=== PATIENT | female | born 1995 | race Caucasian/White ===

== ENCOUNTER 2016-11-17 18:07 | Emergency (ER) | payer SELFPAY ==
[2016-11-17 18:32] VITALS: BP 104/59
[2016-11-17] MEDS ORDERED: XYLOCAINE 1% 20 mL INFILTRATI ONE (22:19)
[2016-11-17] MEDS ORDERED: NORCO 10/325 PO ONE (22:19)
--- NOTE | 2016-11-17 22:19 | Emergency Department Report ---
HPI - General Chief Complaint: Skin/Abscess/Foreign Body Time Seen by Provider: 11/17/16 22:14 - HPI HPI: Patient is a 21-year-old female who presents to ED complaining of left buttock pain and boil times a week. Patient states she noticed a ball on her left buttock and has gotten bigger and has gotten progressively worse as far as pain level. Patient states she is in a lot of pain and is unable to sit on her butt. She denies fevers/chills/nausea/vomiting/abdominal pain/chest pain/dizziness/ diarrhea/shortness of breath or any other problems. ED Past Medical Hx - Past Medical History Previous Medical History?: Yes Additional medical history: chest pain - Surgical History Past Surgical History?: No - Social History Smoking Status: Current Every Day Smoker Substance Use Type: Alcohol, Marijuana, Non Opiate Pain - Medications Home Medications: Home Medications Medication Instructions Recorded Confirmed Last Taken Type Acetaminophen/Codeine [Tylenol #3] 1 tab PO Q6H PRN #12 tab 11/17/16 Unknown Rx Cephalexin [Keflex] 500 mg PO BID #14 capsule 11/17/16 Unknown Rx Ibuprofen [Motrin] 800 mg PO Q8HR PRN #30 tablet 11/17/16 Unknown Rx ED Review of Systems ROS: Stated complaint: CHEST PAIN /BOIL ON BUTTOCKS Other details as noted in HPI Constitutional: denies: chills, fever Eyes: denies: eye pain, eye discharge, vision change ENT: denies: ear pain, throat pain Respiratory: denies: cough, shortness of breath, wheezing Cardiovascular: denies: chest pain, palpitations Endocrine: no symptoms reported Gastrointestinal: denies: abdominal pain, nausea, diarrhea Genitourinary: denies: urgency, dysuria, discharge Musculoskeletal: denies: back pain, joint swelling, arthralgia Skin: other (boil on buttocks). denies: rash, lesions, pruritus Neurological: denies: headache, weakness, paresthesias Psychiatric: denies: anxiety, depression Hematological/Lymphatic: denies: easy bleeding, easy bruising Physical Exam - Physical Exam Vital Signs: Vital Signs 11/17/16 18:27 Temperature 97.4 F L Pulse Rate 66 Respiratory 20 Rate Blood Pressure 104/59 O2 Sat by Pulse 100 Oximetry Physical Exam: GENERAL: Alert and oriented x3, no apparent distress, Normal Gait, atraumatic. HEAD: Head is normocephalic and a-traumatic. EYES: Extra ocular muscles are intact. Pupils are equal, round, and reactive to light and accommodation. EARS: symetrical, atraumatic, non tender. gross auditory nml bilaterally. NOSE: Nose symetrical, Nontender,Nares appeared normal. MOUTH:Mouth is well hydrated and without lesions. Patent airways. NECK: Supple. Non edematous, No carotid bruits. No lymphadenopathy or thyromegaly. LUNGS: Symetrical with respiration, No wheezing, no rales or crackles, CTAB. HEART: S1, S2 present, regular rate and rhythm without murmur, no rubs, no gallops. ABDOMEN: No organomegaly was noted,Positive bowel sounds, soft, and non- distended. . Nontender to palpation on all Quadrants, NO CVA tenderness. BUTTOCK: Abscess on medial aspect of the left buttocks., Fluctuant, 10-12 cm in size. tenderness to palpation. EXTREMITIES/MUSCULOSKELETAL: No cyanosis, clubbing, rash, lesions or edema. Full ROM bilaterally. UE/LE Pulses 2+ bilaterally. NEUROLOGIC: No focal Deficit, Cranial nerves II through XII are grossly intact. No loss of sensation, PSYCHIATRIC: Mood is congruent with affect, denies suicidal or homicidal ideations. SKIN: Warm and dry, No lesions, No ulceration or induration present. ED Course Vital Signs 11/17/16 18:27 Temperature 97.4 F L Pulse Rate 66 Respiratory 20 Rate Blood Pressure 104/59 O2 Sat by Pulse 100 Oximetry - I & D Left Medial Buttocks Site: left butt cheek Blade Size: 11 I & D Procedure: betadine prep, sterile drapes applied, sterile dressing applied ED Medical Decision Making - Medical Decision Making 21-year-old female who presents with left buttock abscess. ED course: Patient received 1 tablet of [place] for pain. Patient positioned appropriately, 15cc lidocaine with/without epinephrine was used as a local anesthetic. #11 blade scalpal used for single incision. Additional local anesthetic injected into surrounding viable tissue prior to blunt dissection of loculated adhesions. Copius drainage of pus Wound packed with iodoform gauze. Procedure tolerated without complications. Wound dressed with sterile 4x4 guaze and paper tape. Pt tolerated procedure well. Discussed with patient to return in 3 days for gauze removal and reassessment. Discussed continuing hip compressions or times a day. Discussed the follow-up. Primary care physician. Vital signs stable. Patient is in no acute respiratory distress. Critical care attestation.: If time is entered above; I have spent that time in minutes in the direct care of this critically ill patient, excluding procedure time. ED Disposition Clinical Impression: Left buttock abscess Disposition: DISCHARGED TO HOME OR SELFCARE Is pt being admited?: No Does the pt Need Aspirin: No Condition: Stable Instructions: Abscess (ED), Heat Pack Application (ED) Prescriptions: Acetaminophen/Codeine [Tylenol #3] 1 tab PO Q6H PRN #12 tab PRN Reason: Pain Cephalexin [Keflex] 500 mg PO BID #14 capsule Ibuprofen [Motrin] 800 mg PO Q8HR PRN #30 tablet PRN Reason: Pain Referrals: PRIMARY CARE, [Primary Care Provider] - 3-5 Days TAMIKA Herrera [facility] [Outside] - 3-5 Days [facility] [Outside] - 3-5 Days [facility] [Outside] - 3-5 Days Forms: Work/School Release Form(ED) Time of Disposition: 23:48
[2016-11-17] MEDS ORDERED: NACL 0.9% 500 ML IRRIGATION ONE (23:13)
[2016-11-17] MEDS ORDERED: NACL 0.9% 500 ML IR ONE (23:19)
== END 2016-11-17 22:45 | disposition home or self-care (01) ==
LOC: ED 18:07
DX: L02.31 Cutaneous abscess of buttock (principal); F17.200 Nicotine dependence, unspecified, uncomplicated; F12.10 Cannabis abuse, uncomplicated
CPT/HCPCS: 99282

== ENCOUNTER 2017-02-06 16:28 | Emergency (ER) | payer SELFPAY ==
[2017-02-06 16:39] VITALS: BP 117/73
[2017-02-06 17:30] LABS: Bilirubin,Urine NEG (Negative); Blood,Urine LG (Negative); Ketones,Urine NEG (Negative); Leukocyte Esterase,Urine LG (Negative); Mucus,Urine 3+ /HPF; Nitrite,Urine NEG (Negative); Urobilinogen,Urine < 2.0 mg/dL (<2.0)
[2017-02-06 17:34] LABS: RBC,Urine > 182.0 /HPF (0.0-6.0); WBC,Urine > 182.0 /HPF (0.0-6.0)
--- NOTE | 2017-02-06 18:39 | Emergency Department Report ---
Entered by STEPHANIE MCKAY, acting as scribe for RYAN GARDUNO PA. ED Female HPI - General Chief complaint: Urogenital-Female Stated complaint: BLOOD IN URINE Time Seen by Provider: 02/06/17 18:10 Source: patient Mode of arrival: Ambulatory Limitations: No Limitations - History of Present Illness Initial comments: 21 y/o female no significant PMHx c/o hematuria for 2 days. Associated symptoms include dysuria, frequency, and pelvic pain, but she denies vaginal discharge, fever, chills, nausea, and vomiting. Patient describes the pelvic pain as pressure in quality. Patient states she currently does not take any medications regularly. LMP 01/23/2017. Complaint: other (hematuria) Onset/Timin -: days(s) Radiation: non-radiating Severity: mild (pelvic pain) Quality: other (describes pelvic pain as pressure in quality) Consistency: constant Improves with: urination Worsens with: none Are you Now?: No Last Menstrual Period: 01/23/17 EDC: 10/30/17 Associated Symptoms: denies other symptoms, dysuria, hematuria, other ( frequency and pelvic pain). denies: vaginal discharge, vaginal bleeding, abdominal pain, nausea/vomiting, fever/chills, headaches, rash, shortness of breath - Related Data Previous Rx's Medication Instructions Recorded Last Taken Type Acetaminophen/Codeine [Tylenol #3] 1 tab PO Q6H PRN #12 tab 11/17/16 Unknown Rx Cephalexin [Keflex] 500 mg PO BID #14 capsule 11/17/16 Unknown Rx Ibuprofen [Motrin] 800 mg PO Q8HR PRN #30 tablet 11/17/16 Unknown Rx Nitrofurantoin Gaines/M-Cryst 100 mg PO Q12HR #14 capsule 02/06/17 Unknown Rx [Macrobid CAP] Allergies Allergy/AdvReac Type Severity Reaction Status Date / Time sesame seed Allergy Unknown Verified 11/17/16 18:26 ED Review of Systems Comment: All other systems reviewed and negative Constitutional: no symptoms reported. denies: chills, fever Eyes: denies: eye pain, eye discharge, vision change ENT: denies: ear pain, throat pain Respiratory: no symptoms reported. denies: cough, shortness of breath, wheezing Cardiovascular: denies: chest pain, palpitations Endocrine: no symptoms reported Gastrointestinal: other (pelvic pain). denies: abdominal pain, nausea, vomiting , diarrhea Genitourinary: dysuria, frequency, hematuria. denies: urgency, discharge Musculoskeletal: denies: back pain, joint swelling, arthralgia Skin: denies: rash, lesions Neurological: denies: headache, weakness, paresthesias Psychiatric: denies: anxiety, depression Hematological/Lymphatic: denies: easy bleeding, easy bruising ED Past Medical Hx - Past Medical History Previous Medical History?: Yes Additional medical history: chest pain - Surgical History Past Surgical History?: No - Social History Smoking Status: Current Every Day Smoker Substance Use Type: Alcohol, Marijuana - Medications Home Medications: Home Medications Medication Instructions Recorded Confirmed Last Taken Type Acetaminophen/Codeine [Tylenol #3] 1 tab PO Q6H PRN #12 tab 11/17/16 Unknown Rx Cephalexin [Keflex] 500 mg PO BID #14 capsule 11/17/16 Unknown Rx Ibuprofen [Motrin] 800 mg PO Q8HR PRN #30 tablet 11/17/16 Unknown Rx Nitrofurantoin Gaines/M-Cryst 100 mg PO Q12HR #14 capsule 02/06/17 Unknown Rx [Macrobid CAP] ED Physical Exam - General Limitations: No Limitations General appearance: alert, in no apparent distress - Head Head exam: Present: atraumatic, normocephalic - Eye Eye exam: Present: normal appearance, EOMI Pupils: Present: normal accommodation - ENT ENT exam: Present: normal exam, mucous membranes moist - Neck Neck exam: Present: normal inspection, full ROM. Absent: lymphadenopathy - Respiratory Respiratory exam: Present: normal lung sounds bilaterally (no adventitious breath sounds). Absent: respiratory distress - Cardiovascular Cardiovascular Exam: Present: regular rate, normal rhythm, normal heart sounds. Absent: systolic murmur, diastolic murmur, rubs, gallop - GI/Abdominal GI/Abdominal exam: Present: soft, normal bowel sounds. Absent: distended, tenderness, guarding, rebound, rigid - Extremities Exam Extremities exam: Present: normal inspection, full ROM - Back Exam Back exam: Present: normal inspection, full ROM. Absent: tenderness, CVA tenderness (R), CVA tenderness (L) - Neurological Exam Neurological exam: Present: alert, oriented X3 - Psychiatric Psychiatric exam: Present: normal affect, normal mood - Skin Skin exam: Present: warm, dry, intact. Absent: rash ED Course Vital Signs 02/06/17 16:35 Temperature 97.7 F Pulse Rate 60 Respiratory 18 Rate Blood Pressure 117/73 O2 Sat by Pulse 100 Oximetry ED Medical Decision Making - Medical Decision Making Patient was evaluated in fast track area of ED by this provider. Patient presented with hematuria for 2 days. Patient is in no acute distress at this time. She will be discharged with prescription for antibiotics. Patient instructed to follow up with OB if symptoms persist. Patient verbalized understanding. She is encouraged to return to the emergency room for any worsening symptoms. ED Disposition Clinical Impression: UTI (urinary tract infection) Qualifiers: Urinary tract infection type: site unspecified Disposition: DISCHARGED TO HOME OR SELFCARE Is pt being admited?: No Does the pt Need Aspirin: No Condition: Stable Instructions: Urinary Tract Infection in Women (ED) Additional Instructions: Please completely antibiotics as prescribed follow up to primary care provider. Prescriptions: Nitrofurantoin [place]/M-Cryst [Macrobid CAP] 100 mg PO Q12HR #14 capsule Referrals: [facility] [Provider Group] - 3-5 Days Forms: Work/School Release Form(ED) This documentation as recorded by the NELY leone JASMINE,accurately reflects the service I personally performed and the decisions made by , RYAN GARDUNO PA.
== END 2017-02-06 18:57 | disposition home or self-care (01) ==
LOC: ED 16:28
DX: N39.0 Urinary tract infection, site not specified (principal); F17.200 Nicotine dependence, unspecified, uncomplicated; F12.90 Cannabis use, unspecified, uncomplicated; Z91.02 Food additives allergy status
CPT/HCPCS: 81001; 81025; 99283